=== PATIENT | male | born 1970 | race Caucasian/White ===

== ENCOUNTER 2017-04-29 16:01 | Emergency (ER) | payer SELFPAY ==
--- NOTE | 2017-04-29 16:10 | EDM.PDOC ---
ED HPI GENERAL MEDICAL PROBLEM - General Chief Complaint: Laceration Stated Complaint: CUT RIGHT MIDDLE FINGER Time Seen by Provider: 04/29/17 16:02 Source of Information: Reports: Patient, Family, RN, RN Notes Reviewed History Limitations: Reports: No Limitations - History of Present Illness INITIAL COMMENTS - FREE TEXT/NARRATIVE: Patient presents to the ED at [facility] after he sustained a laceration to the tip of the 3rd digit right hand. Patient states he was using a knife to clean fish, when the knife slipped, causing the laceration. Patient has a previous injury to the nail bed; no nail is present. No other concerns. Onset: Today ED ROS GENERAL - Review of Systems Review Of Systems: See Below Constitutional: Denies: Fever, Chills, Weakness Respiratory: Denies: Shortness of Breath, Cough Cardiovascular: Denies: Chest Pain, Palpitations Skin: Reports: Wound (cut to tip of 3rd digit right hand) Neurological: Reports: No Symptoms. Denies: Numbness, Paresthesia, Tingling ED EXAM, SKIN/RASH Exam: See Below Exam Limited By: No Limitations General Appearance: Alert, No Apparent Distress Respiratory/Chest: No Respiratory Distress, Lungs Clear, Normal Breath Sounds Cardiovascular: Regular Rate, Rhythm Peripheral Pulses: 2+: Radial (L), Radial (R) Neurological: Alert, Oriented Skin: Warm, Dry, Normal Color, No Rash, Wound/Incision (laceration to tip of 3rd digit right hand; low grade venous ooze; clean laceration) ED SKIN PROCEDURES - Laceration/Wound Repair Right Finger Lac/Wound length In cm: 1.5 Appearance: Subcutaneous, Irregular, Clean Distal NVT: Neuro & Vascular Intact, No Tendon Injury Local Anesthesia - Lidocaine (Xylocaine): 1% Plain Local Anesthetic Volume: 3cc Skin Prep: Chlorhexidine (Hibiciens), Saline Exploration/Debridement/Repair: Wound Explored, in a Bloodless Field, Explored to Base, No Foreign Material Found, Wound Margins Revised Closed with: Sutures Suture Size: 4-0 # of Sutures: 4 Suture Type: Nylon, Interrupted, Simple Sterile Dressing Applied: Nurse Tetanus Status Addressed: Yes Complications: No Course - Orders/Labs/Meds Meds: Medications Discontinued Medications Generic Name Dose Route Start Last Admin Trade Name Freq PRN Reason Stop Dose Admin Lidocaine HCl 5 ml 04/29/17 16:10 04/29/17 16:29 Xylocaine-Mpf 1% INJECT 04/29/17 16:11 5 ml ONETIME ONE Administration Departure - Departure Time of Disposition: 16:47 Disposition: Home, Self-Care 01 Condition: Good Clinical Impression: Finger laceration Qualifiers: Encounter type: initial encounter Finger: middle finger Damage to nail status: without damage Foreign body presence: without foreign body Laterality: right Qualified Code(s): S61.212A - Laceration without foreign body of right middle finger without damage to nail, initial encounter - Discharge Information Instructions: Laceration Care, Adult, Sutured Wound Care Referrals: PCP,None [Primary Care Provider] - Forms: ED Department Discharge Additional Instructions: 1. Keep area clean and dry 2. Keep bandage on for 24 hours, then remove 3. May shower/bather as usual 4. Suture to remain in for 10 days 5. Return to ER or see your Primary in 10 days for wound recheck and suture removal - Problem List Review Problem List Initiated/Reviewed/Updated: Yes
[2017-04-29 18:03] VITALS: BP 133/84
== END 2017-04-29 17:02 | disposition home or self-care (01) ==
LOC: VM.ED 16:01
DX: S61.212A Laceration without foreign body of right middle finger without damage to nail, initial encounter (principal); W26.0XXA Contact with knife, initial encounter; Y93.G1 Activity, food preparation and clean up
CPT/HCPCS: 12001; 99282; 99282-GF-25